=== PATIENT | female | born 1950 | race American Indian/Alaskan Native ===

== ENCOUNTER 2018-06-05 00:29 | Emergency (ER) | payer MEDICARE ==
[2018-06-05 00:36] VITALS: BMI 43.0
--- NOTE | 2018-06-05 00:37 | C.PDOC ---
History Of Present Illness Patient presents to the ER with a complaint of abdominal pain and diarrhea since yesterday after he ate some salad and eggs from an outside vendor. He reports he has been having 10-15 loose bowel movements since then especially today. Patient is able to tolerate PO but everything he drinks comes out. Denies fever, chills, nausea, or vomiting. Time Seen by Provider: 06/05/18 00:36 Chief Complaint (Nursing): Abdominal Pain History Per: Patient History/Exam Limitations: no limitations Onset/Duration Of Symptoms: Days Current Symptoms Are (Timing): Still Present Severity: Moderate Pain Scale Rating Of: 4 Location Of Pain/Discomfort: Diffuse Quality Of Discomfort: Unable To Describe Associated Symptoms: Diarrhea. denies: Fever, Chills, Nausea, Vomiting Exacerbating Factors: None Alleviating Factors: None Recent travel outside of the [place]: No Abnormal Vaginal Bleeding: No Past Medical History Reviewed: Historical Data, Nursing Documentation, Vital Signs - Medical History PMH: Anemia (VIT B12 DEFICIENY), HTN Family History: States: No Known Family Hx - Social History Hx Tobacco Use: No Hx Alcohol Use: Yes Hx Substance Use: No - Immunization History Hx Tetanus Toxoid Vaccination: No Hx Influenza Vaccination: Yes Hx Pneumococcal Vaccination: Yes Review Of Systems Constitutional: Negative for: Fever, Chills Cardiovascular: Negative for: Chest Pain, Palpitations Respiratory: Negative for: Cough, Shortness of Breath Gastrointestinal: Positive for: Abdominal Pain, Diarrhea. Negative for: Nausea, Vomiting Neurological: Negative for: Weakness, Numbness Physical Exam - Physical Exam Appears: Non-toxic Skin: Warm, Dry Head: Normacephalic Oral Mucosa: Moist Chest: Symmetrical, No Tenderness Cardiovascular: Rhythm Regular Respiratory: No Rales, No Rhonchi, No Wheezing Gastrointestinal/Abdominal: Bowel Sounds (Active), Soft, No Tenderness Neurological/Psych: Oriented x3 ED Course And Treatment - Laboratory Results Result Diagrams: 06/05/18 01:54 06/05/18 01:54 O2 Sat by Pulse Oximetry: 98 Pulse Ox Interpretation: Normal Reevaluation Time: 04:56 Reassessment Condition: Improved Disposition Counseled Patient/Family Regarding: Studies Performed, Diagnosis, Need For Followup, Rx Given - Disposition Referrals: Mariel Soto MD [Staff Provider] - Disposition: HOME/ ROUTINE Disposition Time: 00:37 Condition: FAIR Additional Instructions: Please return if symptoms recur. Also use kaopectate for diarrhea Instructions: Food Poisoning (DC) Forms: [facility] (Iranian) - Clinical Impression Clinical Impression: Diarrhea, Food poisoning - Scribe Statement The provider has reviewed the documentation as recorded by the Scribtyrel Mancilla All medical record entries made by the Scribe were at my direction and personally dictated by me. I have reviewed the chart and agree that the record accurately reflects my personal performance of the history, physical exam, medical decision making, and the department course for this patient. I have also personally directed, reviewed, and agree with the discharge instructions and disposition.
[2018-06-05] MEDS ORDERED: Sodium Chloride 0.9% 1,000 ML IV ONE (01:36)
[2018-06-05 01:56] LABS: BASO % 0.3 % (0.0-2.0); EOS # 0.1 K/uL (0.0-0.7); EOS % 0.8 % (0.0-4.0); LYMPH # 1.9 K/uL (1.0-4.3); LYMPH % 26.4 % (20.0-40.0); MEAN CELL VOLUME 86.6 fL (81.0-99.0); MEAN CORPUSCULAR HEMOGLOBIN 29.3 pg (27.0-31.0); MEAN CORPUSCULAR HGB CONC 33.8 g/dL (33.0-37.0); MEAN PLATELET VOLUME 7.8 fL (7.2-11.7); MONO # 0.4 K/uL (0.0-0.8); MONO % 5.9 % (0.0-10.0); NEUT # 4.7 K/uL (1.8-7.0); NEUT % 66.6 % (50.0-75.0); RBC 3.74 Mil/uL (3.80-5.20); WHITE BLOOD COUNT 7.1 K/uL (4.8-10.8)
[2018-06-05] MEDS ORDERED: Sodium Chloride 0.9% 1,000 ML ONE (01:56)
[2018-06-05 02:01] LABS: SQUAMOUS EPITHIAL 5 /hpf (0-5); URINE BILIRUBIN NEGATIVE (NEGATIVE); URINE BLOOD 2+ (NEGATIVE); URINE CLARITY Hazy (Clear); URINE COLOR Yellow (YELLOW); URINE GLUCOSE (UA) NORMAL (Normal); URINE LEUKOCYTE ESTERASE NEG Leu/uL (Negative); URINE PROTEIN NEGATIVE (NEGATIVE); URINE UROBILINOGEN NORMAL mg/dL (0.2-1.0)
[2018-06-05 02:16] LABS: ALBUMIN 3.6 g/dL (3.5-5.0); ALT/SGPT 27 U/L (9-52); AST/SGOT 25 U/L (14-36); BLOOD UREA NITROGEN 11 mg/dL (7-17); CALCIUM 8.4 mg/dl (8.6-10.4); GFR NON-AFRICAN AMERICAN > 60; LIPASE 24 U/L (23-300)
[2018-06-05 04:43] VITALS: BP 138/78; PULSE 69; RESP 18; TEMP 97.6; O2SAT 98
== END 2018-06-05 05:10 | disposition home or self-care (01) ==
LOC: C.ER 00:29
DX: T62.91XA Toxic effect of unspecified noxious substance eaten as food, accidental (unintentional), initial encounter (principal); R19.7 Diarrhea, unspecified
CPT/HCPCS: 80053; 81001; 82948; 83690; 85025; 96374; 96375; 99284; C9113; J1885; J7030